=== PATIENT | female | born 1990 | race African-American/Black ===

== ENCOUNTER → 2016-08-09 | Outpatient (CLI) | payer OTHER ==
--- NOTE | 2016-08-09 20:46 | REP ---
Clinical: Anatomical evaluation. Comparison: None . Findings: Examination demonstrates a single live intrauterine in transverse (head to the maternal right side) presentation. motion is identified by technologist. Placenta is noted anteriorly and grade one without evidence for placenta previa or abruption. Amniotic fluid volume is normal. Cervix measures 5.4 cm in length and appears closed. No evidence for nuchal cord. Gestational age by LMP 20 weeks 0 days with LARY 12/27/2016 . Gestational age by current measurements 20 weeks 1 day with LARY 12/26/2016 . FHR equals 141 beats per minute. BPD 4.4 19 weeks 2 days HC 17.7 20 weeks 2 days AC 15.0 20 weeks 2 days FL 3.2 19 weeks 6 days HL 3.3 20 weeks 6 days HC/AC ratio 1.18 Estimated weight 331 grams ( 50th percentile). Anatomical assessment demonstrates normal structures including cranium, choroid plexus, cavum, cerebellum/posterior fossa, lungs, diaphragm, stomach, cord insertion/three-vessel cord, kidneys/bladder, spine, and extremities. Limited evaluation of the facial features and heart/ventricular outflow tracts. Impression: Live fetus in transverse lie with appropriate interval growth. Anatomical limitations noted above. Remainder of the anatomical assessment is complete and normal. Signed by Ady Street MD 08/09/2016 08:38 P
== END ==
LOC: M RAD 10:04
PROVIDERS: ATTEND Obstetrics & Gynecology
DX: Z34.82 Encounter for supervision of other normal pregnancy, second trimester (principal); Z3A.17 17 weeks gestation of pregnancy

== ENCOUNTER → 2016-08-17 | Outpatient (REF) | payer OTHER | LOC: M LAB REF 16:28 | PROVIDERS: ATTEND Advanced Practice Midwife | DX: Z34.02 Encounter for supervision of normal first pregnancy, second trimester (principal) ==

== ENCOUNTER → 2016-08-31 | Outpatient (CLI) | payer OTHER ==
--- NOTE | 2016-08-31 15:41 | REP ---
Obstetric sonography: History: Supervision of for anatomy. Comparison study is from August 09, 2016. Findings: Scanning demonstrates a viable single intrauterine gestation in a cephalic lie. motion is observed and heart rate is recorded at 150 beats per minute. An anterior placenta is seen grade 0 without evidence of previa or abruption. Amniotic fluid is subjectively normal. Closed cervical length is 4.2 cm, measured transabdominally. There is a complex right maternal ovarian cystic lesion with hypoechoic fluid measuring 7.6 x 4.7 x 6.5 cm. This is essentially unchanged. The outside salesman has the impression that there is an arrhythmia observed at real time examination of the heart. Ventricular cardiac outflow tract views are still less than optimally seen. A normal four-chamber heart view is seen. The following additional anatomic structures are identified and felt to be unremarkable on the fetus: cranium, choroid plexus, cavum, cerebellum posterior fossa, face and profile, lungs, diaphragm, left-sided stomach, abdominal wall cord insertion, three-vessel umbilical cord, kidneys and bladder, spine, upper and lower extremities. Biometry chart: BPD 5.6 cm = 23 weeks 1 day Head circumference 21.7 cm = 23 weeks 5 days Abdominal circumference 18.3 cm = 23 weeks 1 day Femur length 4.3 cm = 24 weeks 0 days Humeral length 3.8 cm = 23 weeks 3 days HC/AC ratio normal 1.19 cephalic index normal 0.70 estimated weight 604 grams, 1 pound 5 ounces, 58 percentile for 23 weeks 1 day. Impression: 1. Viable single intrauterine gestation at 23 weeks 4 days by today's composite sonographic criteria. Expected gestational age estimate based on prior sonography is 23 weeks 2 days. LARY by prior sonography December 26, 2016. 2. Question arrhythmia. Occasional premature cardiac contraction seen and documented on M-mode strip. Left and right ventricular cardiac outflow tract views still less than optimally seen. Consider consultation. 3. 7.6 cm hypoechoic cystic lesion in the maternal right ovary. Signed by Baljeet Gillette MD 09/01/2016 10:12 A
== END ==
LOC: M RAD 11:08
PROVIDERS: ATTEND Obstetrics & Gynecology
DX: Z34.02 Encounter for supervision of normal first pregnancy, second trimester (principal)

== ENCOUNTER → 2016-09-22 | Outpatient (CLI) | payer OTHER ==
--- NOTE | 2016-09-22 14:18 | REP ---
Clinical: Anatomical evaluation. Comparison: 08/31/2016 . Findings: Examination demonstrates a single live intrauterine in transverse presentation. motion is identified by technologist. Placenta is noted anteriorly and grade 0 without evidence for placenta previa or abruption. Complex right maternal ovarian cyst now measures 5.1 cm maximal diameter and decreased from 7.6 cm on prior examination. Amniotic fluid volume is normal. Cervix measures arrival 3.8 cm in length and appears closed. Nuchal cord cannot be excluded. Gestational age by LMP 26 weeks 2 days with LARY 12/27/2016 . Gestational age by current measurements 26 weeks 6 days with LARY 12/23/2016 . FHR equals 150 beats per minute. Estimated weight 963 grams ( 51st percentile). Anatomical assessment demonstrates normal structures including cranium, choroid plexus, cavum, cerebellum/posterior fossa, lungs, four-chamber heart/ventricular outflow tracts, diaphragm, stomach, three-vessel cord, kidneys/bladder, spine. Impression: 1. Single live intrauterine in transverse lie demonstrating appropriate interval growth. In conjunction with prior examination anatomical assessment is complete and normal. 2. Previously noted arrhythmia not documented on current exam. 3. Complex right maternal ovary cyst minimally decreased in size. Signed by Ady Street MD 09/22/2016 02:10 P
== END ==
LOC: M RAD 12:22
PROVIDERS: ATTEND Obstetrics & Gynecology
DX: Z36 Encounter for antenatal screening of mother (principal); Z3A.26 26 weeks gestation of pregnancy

== ENCOUNTER → 2016-09-29 | Outpatient (CLI) | payer OTHER ==
[2016-09-29 11:48] LABS: MEAN CORPUSCULAR HEMOGLOBIN 31.1 pg (27.0-33.0); MEAN CORPUSCULAR VOLUME 94.1 fl (80.0-96.0); RED CELL DISTRIBUTION WIDTH 12.7 % (11.5-14.5); WHITE BLOOD COUNT 11.9 K/mm3 (4.0-10.0)
== END ==
LOC: M LAB 10:20
PROVIDERS: ATTEND Obstetrics & Gynecology
DX: Z34.02 Encounter for supervision of normal first pregnancy, second trimester (principal)

== ENCOUNTER → 2016-11-23 | Outpatient (REF) | payer OTHER | LOC: M LAB REF 16:33 | PROVIDERS: ATTEND Advanced Practice Midwife | DX: Z34.03 Encounter for supervision of normal first pregnancy, third trimester (principal) ==

== ENCOUNTER → 2016-12-01 | Outpatient (CLI) | payer OTHER ==
[2016-12-01 16:17] LABS: ALT/SGPT 18 U/L (12-78); AST/SGOT 16 U/L (15-37); BILIRUBIN,TOTAL 0.2 MG/DL (0.2-1.0); CREATININE FOR GFR 0.59 MG/DL (0.55-1.02); GLOMERULAR FILTRATION RATE > 60.0 (>60); URIC ACID 5.4 MG/DL (2.6-6.0)
[2016-12-01 16:46] LABS: MEAN CORPUSCULAR HEMOGLOBIN 30.8 pg (27.0-33.0); MEAN CORPUSCULAR HGB CONC 32.7 g/dl (32.0-36.5); MEAN CORPUSCULAR VOLUME 94.2 fl (80.0-96.0); RED CELL DISTRIBUTION WIDTH 13.2 % (11.5-14.5); WHITE BLOOD COUNT 10.2 K/mm3 (4.0-10.0)
== END ==
LOC: M LAB 15:13
PROVIDERS: ATTEND Advanced Practice Midwife
DX: O10.013 Pre-existing essential hypertension complicating pregnancy, third trimester (principal); Z3A.00 Weeks of gestation of pregnancy not specified

== ENCOUNTER 2016-12-20 11:04 | Outpatient (CLI) | payer OTHER ==
[~2016-12-20] VITALS: Ht 162.6 cm; Wt 115.0 kg
[2016-12-20] MEDS ORDERED: ADVA230A INH (11:16)
[2016-12-20] MEDS ORDERED: LABE30TA PO (11:16)
[2016-12-20 11:23] VITALS: BP 136/75
[2016-12-20] MEDS ORDERED: LR 800 ML IV SCH (12:15)
[2016-12-20 12:26] LABS: MEAN CORPUSCULAR HEMOGLOBIN 30.6 pg (27.0-33.0); MEAN CORPUSCULAR HGB CONC 32.8 g/dl (32.0-36.5); MEAN CORPUSCULAR VOLUME 93.5 fl (80.0-96.0); RED CELL DISTRIBUTION WIDTH 13.5 % (11.5-14.5)
[2016-12-20] MEDS ORDERED: LR 1,000 ML IV SCH (13:00)
[2016-12-20 13:23] VITALS: BP 136/82
[2016-12-20 14:16] VITALS: BP 133/79
[2016-12-20 14:58] LABS: ALT/SGPT 19 U/L (12-78); AST/SGOT 14 U/L (15-37); BILIRUBIN,TOTAL 0.4 MG/DL (0.2-1.0); CREATININE FOR GFR 0.65 MG/DL (0.55-1.02); GLOMERULAR FILTRATION RATE > 60.0 (>60); URIC ACID 6.4 MG/DL (2.6-6.0)
[2016-12-21] MEDS ORDERED: ADACEL/BOOSTRIX VACCINE (DIPHTH/PERTUSS/ACELL/TETANUS)0.5ML SYR (90715) IM ONE (09:00)
== END 2016-12-20 14:54 ==
LOC: UNDOADMIN 11:04 → M LDO 11:04 → M LDI 11:04 → M LDO 14:54 → UNDODISIN 14:54 → EDSTATUS 12-21 08:41
PROVIDERS: ATTEND Obstetrics & Gynecology
DX: O14.93 Unspecified pre-eclampsia, third trimester (principal); Z3A.39 39 weeks gestation of pregnancy; Z91.013 Allergy to seafood

== ENCOUNTER 2017-01-01 11:25 | Inpatient (IN) | payer OTHER ==
[2017-01-01] VITALS (12 sets, daily range): BP systolic 108–146; BP diastolic 58–77
[~2017-01-01] VITALS: Ht 162.6 cm; Wt 120.0 kg
[~2017-01-01 11:25] MED LIST: ADVA230A INH; LABE30TA PO
[2017-01-01 12:41] LABS: MEAN CORPUSCULAR HEMOGLOBIN 31.2 pg (27.0-33.0); MEAN CORPUSCULAR HGB CONC 33.7 g/dl (32.0-36.5); MEAN CORPUSCULAR VOLUME 92.5 fl (80.0-96.0); RED CELL DISTRIBUTION WIDTH 14.1 % (11.5-14.5); WHITE BLOOD COUNT 9.3 K/mm3 (4.0-10.0)
[2017-01-01 13:02] LABS: ALT/SGPT 24 U/L (12-78); AST/SGOT 21 U/L (15-37); BILIRUBIN,TOTAL 0.3 MG/DL (0.2-1.0); CREATININE FOR GFR 0.55 MG/DL (0.55-1.02); GLOMERULAR FILTRATION RATE > 60.0 (>60); URIC ACID 6.5 MG/DL (2.6-6.0)
[2017-01-01] MEDS ORDERED: miSOPROStol 50 MCG 1/2 TAB (S0191) PO ONE (13:30)
[2017-01-01] MEDS ORDERED: LACTATED RINGER'S 1000 ML IV ONE (13:30)
--- NOTE | 2017-01-01 14:26 | HPEPDOC ---
Obstetrical History & Physical General Date of Admission January 01, 2017 at 11:25 History of Present Illness Patient is a 26-year-old female who is a at 40 weeks 5 days with an LARY of 12/27/2016 based off of her LMP and consistent with her first trimester ultrasound. She initiated care in her first trimester at [facility]. Her has been complicated by chronic hypertension which the patient has been taking 300 mg of labetalol twice a day. She presents to labor and delivery today for an induction of labor related to her chronic hypertension. Patient denies any signs or symptoms of preeclampsia. She reports active movement. Denies vaginal bleeding, contractions, or leaking of fluid. 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 Surgical History: Denies/None Family History Significant Family History: Hypertension, Other (depression) Social History Social history Patient is and is in the as an active duty soldier. Marital Status: Family situation: Spouse/partner home Psychosocial History: Depression * Smoker: non-smoker Alcohol: Denies Drugs: denies Abuse Violence Screening Have you been hit/kicked/slapp: No Have you been sexually assault: No Allergies Coded Allergies: Shellfish Allergy (Verified Allergy, Severe, ANAPHYLAXIS, 12/20/16) Medications Scheduled Labetalol HCl (Labetalol HCl) 300 Mg Tab, 150 MG PO BID Salmeterol/Fluticasone (Advair Hfa 230-21 Mcg/Act) 1 Aer Aer, 1 PUFF INH DAILY Physical Examination Physical Examination GENERAL: Alert and oriented times three. BREAST: . ABDOMEN: Gravid and non-tender to touch. FETUS: Is vertex (VTX) by sterile vaginal examination (SVE), fetus is vertex ( VTX) by Ricardo. HEART RATE: Regular rate and rhythm. LUNGS: Clear to auscultation (CTA). EXTREMITIES: No edema. No clonus. Vital Signs/I&O Vital Sign - Last 24 Hours 01/01/17 01/01/17 01/01/17 11:45 12:56 14:08 Temp 98.2 Pulse 96 85 97 Resp 18 18 18 B/P (MAP) 117/69 (85) 132/74 (93) 134/74 (94) Laboratory Data 24H LABS Laboratory Tests 2 01/01/17 11:35: Serology Scanned Report Hepatitis B Testing 01/01/17 12:36: CBC/BMP Laboratory Tests 01/01/17 12:36 Red Blood Count 3.43 L, Mean Corpuscular Volume 92.5, Mean Corpuscular Hemoglobin 31.2, Mean Corpuscular Hemoglobin Concent 33.7, Red Cell Distribution Width 14.1 Pertinent Laboratoy Data Blood Type: B+ RBC Antibody Screen: Negative HIV: Negative Hepatitis B: Negative Rapid Plasma Reagin: Nonreactive Rubella: Immune Chlamydia/Gonorrhea: Negative Group B Streptococcus: Negative Quad Screen Test: Declined Cystic Fibrosis: Unknown Anatomy Ultrasound Ultrasound Date: December 28, 2016 Placenta Location: Anterior Normal Anatomy: Yes Placenta Previa: No Estimated Weight (grams): 3665 Vaginal Examination Dilation: None Effacement: 40-50% Station: -3 Cervical Consistency: Soft Cervical Position: Posterior Presentation: Cephalic presentation Position: Vertex (occiput) Assessment Heart Rate (FHR): 140 Variability: Moderate Accelerations: Positive Decelerations: None Tocometer Contractions: Yes Frequency: greater than 15 min/apart Multi-drug resistant Organism: No history of MDRO Assessment/Plan Assessment IUP at 40 weeks 5 days gestation Chronic hypertension Category 1 heart rate tracing Plan Admit to labor and delivery. Saline lock and labs per protocol. Out of bed ad marcial. Regular diet. Patient consents to induction of labor after extensive education on risks/ benefits done with patient and . Consents have been signed and in [facility] chart. Cytotec ordered PO for every [address] Cali collaborated on plan for patient. Anticipate cervical ripening. Labor and Delivery Counseling Patient has met with counselor d/t desire to breast and pierced nipples. BOUBACAR VARGAS CNM January 01, 2017 12:57
[2017-01-01] MEDS: miSOPROStol 50 MCG 1/2 TAB (S0191) PO SCH ×2 (17:58→22:12)
[2017-01-01] MEDS ORDERED: LABETALOL 100 MG TAB PO SCH (21:00)
[2017-01-01] MEDS ORDERED: hydrOXYzine 50 MG TAB PO SCH (21:00)
--- NOTE | 2017-01-01 21:48 | IPNPDOC ---
Date Seen The patient was seen on 01/01/17 AT 2130. Progress Note SUBJECTIVE: Patient reports she is doing well. Only complaining of cramping. Denies any preeclamptic symptoms presently. OBJECTIVE PHYSICAL EXAMINATION: VITAL SIGNS: Please see below. RESPIRATORY: Rate regular. No use of accessory muscles. ABDOMINAL: Gravid. Palpates soft without tenderness. EXTREMITIES: Bilateral lower extremities with generalized edema. No pitting. ASSESSMENT: IUP @ 40 weeks 5 days, CHTN, not in active labor, Category I FHR tracing. PLAN: Continue with cytotec induction and VTE prophylaxis. Reviewed options with patient in regards to IOL. Reviewed that due to the very difficult vaginal exam elicited by the patient, this is the only cervical ripening drug that is available to her. Patient verbalized understanding. VS, I&O, 24H, Fishbone Vital Signs/I&O Vital Signs Date Time Temp Pulse Resp B/P (MAP) Pulse Ox O2 Delivery O2 Flow Rate FiO2 01/01/17 21:18 88 135/73 01/01/17 21:16 98.5 18 Laboratory Data 24H LABS Laboratory Tests 2 01/01/17 11:35: Serology Scanned Report Hepatitis B Testing 01/01/17 12:36: Glomerular Filtration Rate > 60.0, Creatinine 0.55, Aspartate Amino Transf (AST/ SGOT) 21, Alanine Aminotransferase (ALT/SGPT) 24, Lactate Dehydrogenase 180, Total Bilirubin 0.3, Uric Acid 6.5H, Syphilis Serology NONREACTIVE CBC/BMP Laboratory Tests 01/01/17 12:36 Red Blood Count 3.43 L, Mean Corpuscular Volume 92.5, Mean Corpuscular Hemoglobin 31.2, Mean Corpuscular Hemoglobin Concent 33.7, Red Cell Distribution Width 14.1, Aspartate Amino Transf (AST/SGOT) 21, Alanine Aminotransferase (ALT/SGPT) 24, Lactate Dehydrogenase 180, Total Bilirubin 0.3, Uric Acid 6.5 H BOUBACAR VARGAS CNM January 01, 2017 21:48
[2017-01-01] MEDS ORDERED: BUTORPHANOL 2 MG/ML INJ (J0595) IV ONE (23:00)
[2017-01-01] MEDS ORDERED: PROMETHAZINE INJ 25 MG/ML VIAL (J2550) IV ONE (23:00)
[2017-01-02] VITALS (56 sets, daily range): BP systolic 98–153; BP diastolic 56–97
[2017-01-02] MEDS ORDERED: FENTANYL 2MCG/ML ROPIVACAINE 0.2% IN 0.9% NACL 200ML IVBAG As Ordered ONE (02:01)
--- NOTE | 2017-01-02 02:17 | IPNPDOC ---
Date Seen The patient was seen on 01/02/17. Progress Note SUBJECTIVE: Patient desires an epidural for pain management. She has vomited. She received 100 mg of Vistaril at 2200 as she desired something to help her sleep. OBJECTIVE: FHR 145, moderate variability, 10x10 accelerations, no current decelerations. Category II tracing noted with minimal variability and late decelerations, which have resolved with intrauterine resuscitation. Contractions are every 1 to 4 minutes. DVT prophylaxis ordered?: Yes ASSESSMENT: IUP @ 40 weeks 6 days gestation, CHTN, Category II FHR tracing PLAN:Patient is due for a cytotec. Will not give at this time. Patient to receive epidural for pain management. Will continue to monitor. Consider Pitocin once epidural has been obtained and FHR is reactive. VS, I&O, 24H, Fishbone Vital Signs/I&O Vital Signs Date Time Temp Pulse Resp B/P (MAP) Pulse Ox O2 Delivery O2 Flow Rate FiO2 01/02/17 00:14 88 118/64 (82) 01/01/17 21:16 98.5 18 I&O- Last 24 Hours up to 6 AM 01/02/17 06:00 Intake Total 780 ml Output Total 850 ml Balance -70 ml Laboratory Data 24H LABS Laboratory Tests 2 01/01/17 11:35: Serology Scanned Report Hepatitis B Testing 01/01/17 12:36: Glomerular Filtration Rate > 60.0, Creatinine 0.55, Aspartate Amino Transf (AST/ SGOT) 21, Alanine Aminotransferase (ALT/SGPT) 24, Lactate Dehydrogenase 180, Total Bilirubin 0.3, Uric Acid 6.5H, Syphilis Serology NONREACTIVE CBC/BMP Laboratory Tests 01/01/17 12:36 Red Blood Count 3.43 L, Mean Corpuscular Volume 92.5, Mean Corpuscular Hemoglobin 31.2, Mean Corpuscular Hemoglobin Concent 33.7, Red Cell Distribution Width 14.1, Aspartate Amino Transf (AST/SGOT) 21, Alanine Aminotransferase (ALT/SGPT) 24, Lactate Dehydrogenase 180, Total Bilirubin 0.3, Uric Acid 6.5 H BOUBACAR VARGAS CNM January 02, 2017 02:17
[2017-01-02] MEDS ORDERED: NALOXONE INJ 0.4 MG/1 ML VIAL (J2310) IV PRN ×3 (02:18→09:35)
[2017-01-02] MEDS ORDERED: FENTANYL/ROPIVACAINE/NACL BAG 200 ML EPIDURAL SCH (02:18)
[2017-01-02] MEDS ORDERED: ePHEDrine SULFATE 25 MG/5 ML(5MG/ML) SYRINGE IV PRN (02:18)
[2017-01-02] MEDS ORDERED: EPIDURAL COMMENT XX SCH (02:18)
[2017-01-02] MEDS ORDERED: EPIDURAL/PCA KEYS XX PRN (02:18)
[2017-01-02] MEDS ORDERED: REFRIGERATOR IV KEYS XX PRN (02:18)
[2017-01-02] MEDS ORDERED: LACTATED RINGER'S 1000 ML IV PRN (02:18)
[2017-01-02] MEDS ORDERED: ONDANSETRON 4MG/2ML VIAL (J2405) IV PRN ×4 (02:18→10:45)
[2017-01-02] MEDS ORDERED: diphenhydrAMINE INJ 50MG/ML VIAL (J1200) IV PRN ×2 (02:18→10:45)
[2017-01-02] MEDS: LR 1,000 ML IV SCH ×2 (02:51→07:57)
[2017-01-02] MEDS ORDERED: OXYTOCIN DRIP 30 UNITS in APPROPRIATE DILUENT 1 EA IV SCH (03:00)
[2017-01-02] MEDS ORDERED: ceFAZolin 2 GM/D5W 50 ML IV BAG (J0690) As Ordered ONE (08:46)
[2017-01-02] MEDS ORDERED: BICITRA 30ML SOLN UDC As Ordered ONE (08:46)
[2017-01-02 08:49] LABS: MEAN CORPUSCULAR HEMOGLOBIN 30.6 pg (27.0-33.0); MEAN CORPUSCULAR HGB CONC 33.1 g/dl (32.0-36.5); MEAN CORPUSCULAR VOLUME 92.3 fl (80.0-96.0); WHITE BLOOD COUNT 11.2 K/mm3 (4.0-10.0)
[2017-01-02] MEDS: PRENATAL VITAMIN TAB PO SCH (09:00)
[2017-01-02] MEDS ORDERED: BICITRA 30ML SOLN UDC PO ONE (09:00)
[2017-01-02] MEDS: DOCUSATE SODIUM 100 MG CAP PO SCH ×2 (09:00→21:44)
[2017-01-02] MEDS ORDERED: LR 1,000 ML IV SCH ×2 (09:02→10:45)
[2017-01-02] MEDS ORDERED: LIDOCAINE 2% W/EPIN INJ 20ML **PRES FREE As Ordered ONE (09:07)
[2017-01-02] MEDS ORDERED: OXYTOCIN INJ 10 UNITS/ML VIAL (J2590) As Ordered ONE (09:08)
[2017-01-02] MEDS ORDERED: ONDANSETRON 4MG/2ML VIAL (J2405) As Ordered ONE (09:11)
[2017-01-02] MEDS ORDERED: KETOROLAC 60 MG/2 ML VIAL (J1885) As Ordered ONE (09:11)
[2017-01-02] MEDS ORDERED: MORPHINE PRES-FREE INJ 10 MG/10 ML VIAL (J2274) As Ordered ONE (09:12)
[2017-01-02 09:14] LABS: ALT/SGPT 19 U/L (12-78); AST/SGOT 17 U/L (15-37); BILIRUBIN,TOTAL 0.5 MG/DL (0.2-1.0); CREATININE FOR GFR 0.59 MG/DL (0.55-1.02); GLOMERULAR FILTRATION RATE > 60.0 (>60); URIC ACID 7.1 MG/DL (2.6-6.0)
[2017-01-02] MEDS ORDERED: NORCO, ANEXSIA 5/325MG TABLET (HYDROcodone/ACETAMINOPHEN) PO PRN (09:15)
[2017-01-02] MEDS ORDERED: MOM 30ML SUSPENSION UDC PO PRN (09:15)
[2017-01-02] MEDS ORDERED: MEASLES,MUMPS,RUBELLA VACCINE INJ (MMR-II) (90707) SC SCH (09:15)
[2017-01-02] MEDS ORDERED: RHOGAM 300 MCG (1500 IU) INJ (J2790) IM SCH (09:15)
[2017-01-02] MEDS ORDERED: METHYLERGONOVINE MALEATE 0.2 MG TAB PO PRN (09:15)
[2017-01-02] MEDS ORDERED: METOCLOPRAMIDE INJ 10MG/2ML VIAL (J2765) IV PRN ×2 (09:35→10:45)
[2017-01-02] MEDS ORDERED: NALBUPHINE HCL 10 MG/ML AMP (J2300) IV PRN ×2 (09:35→10:45)
[2017-01-02 09:47] LABS: CORD GAS PCO2 V 38.3 mmHg; CORD GAS PH V 7.356 UNITS; CORD GAS PO2 V 23.2 mmHg; CORD GAS TCO2 V 22.1 MEQ/L
[2017-01-02 09:50] LABS: CORD GAS ABE A -4.5; CORD GAS HCO3 A 23.1 MEQ/L; CORD GAS O2 SAT A < 15.0 %; CORD GAS PH A 7.266 UNITS; CORD GAS PO2 A 10.1 mmHg; CORD GAS TCO2 A 24.7 MEQ/L
[2017-01-02] MEDS ORDERED: AZITHROMYCIN INJ 500 MG, VIAL MATE ADAPTER 1 EACH in D5W 250 ML IV ONE (10:00)
--- NOTE | 2017-01-02 10:44 | RO ---
DATE OF PROCEDURE: 01/02/2017 Joan is a 26-year-old female, a 1, para 0 who was admitted at 40-6/7 weeks gestation for induction. She underwent Cytotec induction followed by artificial rupture of membrane with thick meconium. She also had a nonreassuring heart rate tracing and an arrest of dilatation at approximately 2 cm. After extensive counseling, the decision was made to proceed with a primary section. She refused to continue with the induction process. PREOPERATIVE DIAGNOSES 1. Intrauterine at 40-6/7 weeks. 2. Nonreassuring heart rate tracing. 3. Meconium-stained fluid. 4. Remote from delivery. 5. Chronic hypertension. 6. Refusing to continue with induction process. POSTOPERATIVE DIAGNOSES: 1. Intrauterine at 40-6/7 weeks. 2. Nonreassuring heart rate tracing. 3. Meconium-stained fluid. 4. Remote from delivery. 5. Chronic hypertension. 6. Refusing to continue with induction process. 7. Cord around the left arm. SURGEON: Dr. Cali POWDER MILL OPERATOR: PROCEDURE: Primary low transverse section via Pfannenstiel incision. ANESTHESIA: Epidural. COMPLICATIONS: None. ESTIMATED BLOOD LOSS: 550 mL. FINDINGS: Live male infant in occiput transverse position. scores 2 and 9. weight 8 pounds. Normal-appearing placenta with meconium staining. PROCEDURE: After obtaining informed consent, the patient was taken to the operating room where epidural anesthetic was found to be adequate. She was then draped and prepped usual sterile fashion in the supine position. At this point, a Pfannenstiel incision was made with the first knife. This was carried down to the fascia. Fascia was incised in midline fashion and carried through laterally. Superior aspect of the fascia were grasped with two Demetris clamps, tented off, and dissected off the rectus muscles sharply. The inferior aspect was dissected off in a similar fashion. Rectus muscles in midline fashion. Perineum identified. Peritoneal cavity entered bluntly. Superior and inferior dissection of peritoneum was then done with good visualization of the bladder. At this point, a Mobius skin retractor was placed. A low-transverse uterine incision was made. Infant was delivered in atraumatic fashion. Nose and mouth bulb suctioned. Cord doubly clamped and cut. The was handed over to the waiting warmer. Cord blood and cord gas was sent. Placenta removed manually. Uterus cleared of all clot and debris. Uterine incision was then repaired in two separate layers of #0 Vicryl sutures. Pelvis copiously irrigated with normal saline and suctioned out. Attention turned to the peritoneum, which was closed in a running fashion using #2-0 Vicryl. Fascia closed in two separate segment of #0 Vicryl sutures. All superficial bleeders were coagulated, and the skin was reapproximated in subcuticular fashion using #3-0 Vicryl and a Erwin. Steri-Strips placed. The patient tolerated procedure well. She was then transferred to recovery room in stable condition.
[2017-01-02] MEDS ORDERED: MEPERIDINE INJ 25 MG/ML VIAL (J2175) IV PRN (10:45)
[2017-01-02] MEDS ORDERED: fentaNYL 100 MCG/2 ML INJECTION (J3010) IV PRN (10:45)
[2017-01-02] MEDS ORDERED: PERCOCET 5MG/325MG TAB PO PRN (10:45)
[2017-01-02] MEDS ORDERED: HYDROmorphone HCL 1 MG/ML SYRINGE (J1170) IV PRN (10:45)
[2017-01-02] MEDS: LABETALOL 200 MG TAB PO SCH (21:45)
[2017-01-03 01:39] VITALS: BP 126/62
[2017-01-03 05:31] VITALS: BP 135/75
[2017-01-03] MEDS: NORCO, ANEXSIA 5/325MG TABLET (HYDROcodone/ACETAMINOPHEN) PO PRN ×3 (06:35→21:25)
[2017-01-03 06:49] LABS: MEAN CORPUSCULAR HEMOGLOBIN 30.7 pg (27.0-33.0); MEAN CORPUSCULAR HGB CONC 33.1 g/dl (32.0-36.5); MEAN CORPUSCULAR VOLUME 92.9 fl (80.0-96.0); WHITE BLOOD COUNT 15.6 K/mm3 (4.0-10.0)
[2017-01-03] MEDS: PRENATAL VITAMIN TAB PO SCH ×2 (09:00→09:01)
[2017-01-03] MEDS: DOCUSATE SODIUM 100 MG CAP PO SCH ×2 (09:01→21:21)
[2017-01-03] MEDS: LABETALOL 200 MG TAB PO SCH ×2 (09:02→21:22)
[2017-01-03 10:00] VITALS: BP 138/77
[2017-01-03] MEDS: IBUPROFEN 800 MG TAB PO SCH ×2 (13:07→21:24)
[2017-01-03 14:00] VITALS: BP 134/72
[2017-01-03 18:00] VITALS: BP 134/69
[2017-01-03 21:54] VITALS: BP 115/64
[2017-01-04] MEDS: NORCO, ANEXSIA 5/325MG TABLET (HYDROcodone/ACETAMINOPHEN) PO PRN (05:00)
[2017-01-04 05:50] VITALS: BP 124/66
[2017-01-04] MEDS: IBUPROFEN 800 MG TAB PO SCH (07:20)
[2017-01-04] MEDS ORDERED: PERC5TAB6 PO (08:11)
[2017-01-04] MEDS: DOCUSATE SODIUM 100 MG CAP PO SCH (08:41)
[2017-01-04] MEDS: PRENATAL VITAMIN TAB PO SCH (08:42)
[2017-01-04 08:44] VITALS: BP 124/76
[2017-01-04] MEDS: LABETALOL 200 MG TAB PO SCH (08:44)
--- NOTE | 2017-01-04 08:52 | DSES ---
DATE OF ADMISSION: 01/01/2017 DATE OF DISCHARGE: FINAL DIAGNOSES: Term at 40 weeks with a failed induction, nonreassuring heart rate tracing, remote from delivery, chronic hypertension on labetalol. PROCEDURE DONE DURING THIS ADMISSION: Primary low transverse section. CONDITION UPON DISCHARGE: Stable. Discharge hemoglobin and hematocrit 8.4/26. MEDICATIONS SENT HOME WITH: - Percocet one tablet every 6 hours as needed for pain DISCHARGE INSTRUCTIONS: Given. She is to followup in the office in approximately 2 weeks for an incision check. BRIEF HISTORY: Joan is a 26-year-old female, 1, para 0, was admitted at 40 weeks' gestation for an induction with chronic hypertension. She underwent Cytotec followed by artificial rupture of membranes and Pitocin, progressed to 4 cm dilated, with nonreassuring heart rate tracing. At this point, a decision was made to proceed with a primary section. She underwent the above-noted procedure. Was then transferred to maternity for postoperative care. Postoperatively, she did well, remained afebrile throughout her hospital stay. Her blood pressures were under control with 200 mg of labetalol twice daily. On postoperative day #2, she was then discharged home in stable condition to followup in the office in approximately 2 weeks for an incision check.
[2017-01-04] MEDS ORDERED: IBUP-1114 PO (09:28)
[2017-01-04] MEDS ORDERED: NORCOTAB PO (09:28)
== END 2017-01-04 12:25 | disposition home or self-care (01) | DRG 766 ==
LOC: M LDI 11:25 → M OBS 01-02 11:40
PROVIDERS: ADMIT Advanced Practice Midwife; ATTEND Advanced Practice Midwife
PROC: 3E0DXGC Introduction of Other Therapeutic Substance into Mouth and Pharynx, External Approach (ICD-10-PCS; 2017-01-01)
PROC: 10D00Z1 Extraction of Products of Conception, Low, Open Approach (ICD-10-PCS; principal; 2017-01-02)
PROC: 10907ZC Drainage of Amniotic Fluid, Therapeutic from Products of Conception, Via Natural or Artificial Opening (ICD-10-PCS; 2017-01-02)
DX: O10.02 Pre-existing essential hypertension complicating childbirth (principal); O48.0 Post-term pregnancy; Z37.0 Single live birth; Z3A.40 40 weeks gestation of pregnancy; Z82.49 Family history of ischemic heart disease and other diseases of the circulatory system; Z81.8 Family history of other mental and behavioral disorders; J45.909 Unspecified asthma, uncomplicated; Z79.899 Other long term (current) drug therapy; Z91.013 Allergy to seafood; O77.0 Labor and delivery complicated by meconium in amniotic fluid; O76 Abnormality in fetal heart rate and rhythm complicating labor and delivery; O62.0 Primary inadequate contractions; O69.82X0 Labor and delivery complicated by other cord entanglement, without compression, not applicable or unspecified; O99.52 Diseases of the respiratory system complicating childbirth

== ENCOUNTER → 2018-05-09 | Outpatient (REF) | payer OTHER | LOC: M SFHCLERA 11:12 | DX: E66.01 Morbid (severe) obesity due to excess calories (principal) ==

== ENCOUNTER → 2018-05-10 | Outpatient (REF) | payer OTHER ==
[2018-05-10 17:09] LABS: ALBUMIN 3.9 GM/DL (3.2-5.2); ALBUMIN/GLOBULIN RATIO 0.98 (1.00-1.93); ALKALINE PHOSPHATASE 67 U/L (45-117); ALT/SGPT 26 U/L (12-78); ANION GAP 7 MEQ/L (8-16); AST/SGOT 14 U/L (7-37); BILIRUBIN,TOTAL 0.5 MG/DL (0.2-1.0); BLOOD UREA NITROGEN 12 MG/DL (7-18); CALCIUM LEVEL 9.2 MG/DL (8.5-10.1); CARBON DIOXIDE LEVEL 28 MEQ/L (21-32); CHLORIDE LEVEL 104 MEQ/L (98-107); CHOLESTEROL LEVEL 198 MG/DL (<200); CHOLESTEROL RISK RATIO 3.142 (<5); CREATININE FOR GFR 0.75 MG/DL (0.55-1.30); FREE T4 0.87 NG/DL (0.76-1.46); GLOMERULAR FILTRATION RATE > 60.0 (>60); GLUCOSE, FASTING 87 MG/DL (70-100); HDL CHOLESTEROL 63 MG/DL (>40); LDL CHOLESTEROL 117 MG/DL (<100); NON-HDL-C 135 MG/DL; POTASSIUM SERUM 4.3 MEQ/L (3.5-5.1); SODIUM LEVEL 139 MEQ/L (136-145); TOTAL PROTEIN 7.9 GM/DL (6.4-8.2); TRIGLYCERIDES LEVEL 88 MG/DL (<150)
== END ==
LOC: M SFHCLERA 10:55
DX: E66.01 Morbid (severe) obesity due to excess calories (principal)

== ENCOUNTER → 2018-06-11 | Outpatient (REF) | payer OTHER ==
[2018-06-11 13:30] LABS: HEMATOCRIT 35.7 % (36.0-47.0); HEMOGLOBIN 11.6 g/dl (12.0-15.5); MEAN CORPUSCULAR HEMOGLOBIN 30.1 pg (27.0-33.0); MEAN CORPUSCULAR HGB CONC 32.5 g/dl (32.0-36.5); MEAN CORPUSCULAR VOLUME 92.7 fl (80.0-96.0); PLATELET COUNT, AUTOMATED 349 10^3/uL (150-450); RED BLOOD COUNT 3.85 10^6/uL (4.00-5.40); RED CELL DISTRIBUTION WIDTH 13.1 % (11.5-14.5)
[2018-06-11 15:35] LABS: HCG, SERUM QUANTITATIVE 2439 MIU/ML
[2018-06-12 10:26] LABS: RUBELLA IgG QUALITATIVE IMMUNE (IMMUNE)
[2018-06-12 10:27] LABS: HBsAg Prenatal NEGATIVE (NEGATIVE)
[2018-06-12 10:54] LABS: HEPATITIS C VIRUS ABY INDEX 0.1 INDEX (<0.8)
[2018-06-12 10:55] LABS: HIV 1&2 SCREEN CENTAUR NEGATIVE (NEGATIVE)
== END ==
LOC: M LAB REF 12:23
DX: O36.80X0 Pregnancy with inconclusive fetal viability, not applicable or unspecified (principal); Z32.01 Encounter for pregnancy test, result positive
CPT/HCPCS: 86762

== ENCOUNTER → 2018-07-11 | Outpatient (REF) | payer OTHER ==
[2018-07-11 18:43] LABS: ALBUMIN 3.5 GM/DL (3.2-5.2); ALBUMIN/GLOBULIN RATIO 0.88 (1.00-1.93); ALKALINE PHOSPHATASE 65 U/L (45-117); ALT/SGPT 23 U/L (12-78); ANION GAP 6 MEQ/L (8-16); AST/SGOT 10 U/L (7-37); BILIRUBIN,TOTAL 0.2 MG/DL (0.2-1.0); BLOOD UREA NITROGEN 11 MG/DL (7-18); CALCIUM LEVEL 9.4 MG/DL (8.5-10.1); CARBON DIOXIDE LEVEL 27 MEQ/L (21-32); CHLORIDE LEVEL 103 MEQ/L (98-107); CREATININE FOR GFR 0.62 MG/DL (0.55-1.30); GLOMERULAR FILTRATION RATE > 60.0 (>60); GLUCOSE, FASTING 89 MG/DL (70-100); POTASSIUM SERUM 4.4 MEQ/L (3.5-5.1); SODIUM LEVEL 136 MEQ/L (136-145); TOTAL PROTEIN 7.5 GM/DL (6.4-8.2)
[2018-07-11 18:52] LABS: APPEARANCE, URINE HAZY (CLEAR); BACTERIA, URINE AUTO 2+ (NEGATIVE); BILIRUBIN, URINE AUTO NEGATIVE (NEGATIVE); BLOOD, URINE BLOOD NEGATIVE (NEGATIVE); COLOR, URINE YELLOW (YELLOW); GLUCOSE, URINE (UA) AUTO NEGATIVE (NEGATIVE); KETONE, URINE AUTO NEGATIVE (NEGATIVE); LEUKOCYTE ESTERASE, URINE AUTO 3+ (NEGATIVE); MUCUS, URINE SMALL (NEGATIVE); NITRITE, URINE AUTO NEGATIVE (NEGATIVE); PROTEIN, URINE AUTO NEGATIVE (NEGATIVE); RBC, URINE AUTO 3 /HPF (0-3); SPECIFIC GRAVITY URINE AUTO 1.024 (1.002-1.035); SQUAMOUS EPITHELIAL CELL UR AU 7 /HPF (0-6); UROBILINOGEN, URINE AUTO 0.2 mg/dL (0.0-2.0); WBC, URINE AUTO 3 /HPF (0-3)
== END ==
LOC: M SFHCLERA 11:54
DX: R10.13 Epigastric pain (principal)

== ENCOUNTER → 2018-07-12 | Outpatient (REF) | payer OTHER ==
[2018-07-12 15:30] LABS: CHLAMYDIA DNA AMPLIFICATION NEGATIVE (NEGATIVE); GC DNA AMPLIFICATION NEGATIVE (NEGATIVE)
== END ==
LOC: M LAB REF 13:20
DX: Z34.81 Encounter for supervision of other normal pregnancy, first trimester (principal)

== ENCOUNTER → 2018-07-18 | Outpatient (REF) | payer OTHER ==
[2018-07-20 00:07] LABS: H PYLORI STOOL ANTIGEN Negative (Negative)
== END ==
LOC: M SFHCLERA 09:52
DX: R10.13 Epigastric pain (principal)
CPT/HCPCS: 87338

== ENCOUNTER → 2018-07-19 | Outpatient (CLI) | payer OTHER ==
[2018-07-19 13:18] LABS: ALBUMIN 3.3 GM/DL (3.2-5.2); ALBUMIN/GLOBULIN RATIO 0.79 (1.00-1.93); ALKALINE PHOSPHATASE 61 U/L (45-117); ALT/SGPT 16 U/L (12-78); ANION GAP 9 MEQ/L (8-16); AST/SGOT 13 U/L (7-37); BILIRUBIN,TOTAL 0.3 MG/DL (0.2-1.0); BLOOD UREA NITROGEN 7 MG/DL (7-18); CALCIUM LEVEL 9.5 MG/DL (8.5-10.1); CARBON DIOXIDE LEVEL 25 MEQ/L (21-32); CHLORIDE LEVEL 101 MEQ/L (98-107); GLOMERULAR FILTRATION RATE > 60.0 (>60); GLUCOSE, FASTING 109 MG/DL (70-100); POTASSIUM SERUM 3.8 MEQ/L (3.5-5.1); SODIUM LEVEL 135 MEQ/L (136-145); TOTAL PROTEIN 7.5 GM/DL (6.4-8.2)
[2018-07-19 14:49] LABS: ESTIMATED AVERAGE GLUCOSE 126 MG/DL (60-110)
== END ==
LOC: M LAB 09:43
DX: Z36.89 Encounter for other specified antenatal screening (principal)
CPT/HCPCS: 80053

== ENCOUNTER → 2018-08-15 | Outpatient (REF) | payer OTHER ==
[~2018-08-15] MED LIST changes: +IBUP-1114 PO; +LABE300T2 PO; -LABE30TA PO; +NORCOTAB PO; +PERC5TAB12 PO
== END ==
LOC: M LAB REF 13:06
PROVIDERS: ATTEND Obstetrics & Gynecology
DX: Z34.81 Encounter for supervision of other normal pregnancy, first trimester (principal)

== ENCOUNTER → 2018-09-10 | Outpatient (REF) | payer OTHER | LOC: M LAB REF 13:30 | PROVIDERS: ATTEND Obstetrics & Gynecology | DX: Z34.82 Encounter for supervision of other normal pregnancy, second trimester (principal); Z3A.18 18 weeks gestation of pregnancy ==

== ENCOUNTER → 2018-09-18 | Outpatient (CLI) | payer OTHER ==
--- NOTE | 2018-09-18 13:07 | REP ---
Obstetric ultrasound for anatomy: There is a single intrauterine gestation in a vertex presentation. There is movement and cardiac activity. The heart rate is 160 beats per minute. The placenta is posterior without previa or abruptio. The placenta is grade zero maturity. Subjectively the amniotic fluid volume is normal. The cervix measures 4.6 cm length. Gestational age by the ultrasound today is 19 weeks 5 days/LARY 02/07/2019. Gestational age by LMP is 19 weeks 4 days/LARY 02/08/2019. weight is 307 grams (0 pounds, 10 ounces). This is the 50th percentile for 19 weeks 4 days. The following anatomic structures are identified and are unremarkable: Intracranial lateral ventricles, choroid plexus, cerebellum, cisterna magna, lungs, stomach, cord insertion, three-vessel cord, kidneys, bladder, spine and upper lower extremities. Suboptimally demonstrated because of position are the facial features, four-chamber view of the heart, cardiac right and left ventricular outflow tracts and diaphragm. A followup study dedicated to these structures might be considered. Electronically Signed by Thom Velásquez MD 09/18/2018 12:59 P
== END ==
LOC: M RAD 11:16
PROVIDERS: ATTEND Obstetrics & Gynecology
DX: Z34.82 Encounter for supervision of other normal pregnancy, second trimester (principal); Z36.89 Encounter for other specified antenatal screening; Z3A.19 19 weeks gestation of pregnancy

== ENCOUNTER → 2018-11-07 | Outpatient (CLI) | payer OTHER ==
[~2018-11-07] MED LIST changes: +HYDR-3715 PO; -NORCOTAB PO
--- NOTE | 2018-11-07 16:46 | REP ---
Clinical: Anatomical evaluation. Comparison: 09/18/2018 . Findings: Examination demonstrates a single live intrauterine in cephalic presentation. motion is identified by technologist. Placenta is noted posterior and grade grade zero without evidence for placenta previa or abruption. Amniotic fluid volume is normal. Cervix measures 4.8 cm in length and appears closed. No evidence for nuchal cord. Gestational age by LMP 26 weeks 5 days with LARY 02/08/2019 . Gestational age by current measurements 26 weeks 6 days with LARY 02/07/2019 . FHR equals 150 beats per minute. Estimated weight 1042 grams ( 56th percentile). Anatomical assessment demonstrates normal structures including cranium, cavum, cerebellum/posterior fossa, facial features, lungs, four-chamber heart/ventricular outflow tracts, diaphragm, stomach, cord insertion/three-vessel cord, kidneys/bladder, and extremities. Impression: Single live intrauterine in cephalic presentation demonstrating appropriate interval growth. In conjunction with prior examination anatomical assessment is complete and normal. No gross abnormalities are identified. Electronically Signed by Ady Street MD 11/07/2018 04:38 P
== END ==
LOC: M RAD 15:29
PROVIDERS: ATTEND Obstetrics & Gynecology
DX: O34.211 Maternal care for low transverse scar from previous cesarean delivery (principal); O99.212 Obesity complicating pregnancy, second trimester; E66.9 Obesity, unspecified; Z3A.26 26 weeks gestation of pregnancy

== ENCOUNTER → 2018-11-22 | Outpatient (CLI) | payer OTHER ==
[2018-11-22 11:52] LABS: HEMATOCRIT 33.3 % (36.0-47.0); MEAN CORPUSCULAR HEMOGLOBIN 30.8 pg (27.0-33.0); MEAN CORPUSCULAR VOLUME 93.3 fl (80.0-96.0); PLATELET COUNT, AUTOMATED 286 10^3/uL (150-450); RED BLOOD COUNT 3.57 10^6/uL (4.00-5.40); WHITE BLOOD COUNT 10.7 10^3/uL (4.0-10.0)
== END ==
LOC: M LAB 10:21
PROVIDERS: ATTEND Obstetrics & Gynecology
DX: Z34.82 Encounter for supervision of other normal pregnancy, second trimester (principal)

== ENCOUNTER → 2019-01-09 | Outpatient (REF) | payer OTHER | LOC: M LAB REF 12:32 | PROVIDERS: ATTEND Obstetrics & Gynecology | DX: Z34.83 Encounter for supervision of other normal pregnancy, third trimester (principal); Z36.85 Encounter for antenatal screening for Streptococcus B ==

== ENCOUNTER 2019-01-30 05:30 | Inpatient (IN) | payer OTHER ==
[~2019-01-30] VITALS: Ht 162.6 cm; Wt 139.5 kg
[2019-01-30] VITALS (23 sets, daily range): BP systolic 111–140; BP diastolic 54–80
[~2019-01-30 05:30] MED LIST changes: +PRENTAB55 PO; +PROAAER10 INH
[2019-01-30] MEDS ORDERED: LR 1,000 ML IV SCH (05:49)
[2019-01-30] MEDS ORDERED: LACTATED RINGER'S 1000 ML IV STA (05:49)
[2019-01-30] MEDS ORDERED: BICITRA 30ML SOLN UDC PO ONE (06:00)
[2019-01-30 06:43] LABS: HEMATOCRIT 32.5 % (36.0-47.0); HEMOGLOBIN 10.7 g/dl (12.0-15.5); MEAN CORPUSCULAR HEMOGLOBIN 30.1 pg (27.0-33.0); MEAN CORPUSCULAR HGB CONC 32.9 g/dl (32.0-36.5); MEAN CORPUSCULAR VOLUME 91.3 fl (80.0-96.0); PLATELET COUNT, AUTOMATED 270 10^3/uL (150-450); RED BLOOD COUNT 3.56 10^6/uL (4.00-5.40)
[2019-01-30] MEDS ORDERED: OXYTOCIN INJ 10 UNITS/ML VIAL (J2590) As Ordered ONE (07:16)
[2019-01-30] MEDS ORDERED: MORPHINE PRES-FREE INJ 10 MG/10 ML VIAL (J2274) As Ordered ONE (07:18)
[2019-01-30] MEDS ORDERED: BUPIVACAINE/DEXTROSE 0.75% 2 ML AMP As Ordered ONE (07:19)
[2019-01-30] MEDS ORDERED: dexameTHASONE 4 MG/ML 1ML VIAL (J1100) As Ordered ONE (07:27)
[2019-01-30] MEDS ORDERED: OXYTOCIN DRIP 30 UNITS in APPROPRIATE DILUENT 1 EA IV SCH (07:39)
[2019-01-30] MEDS ORDERED: METOCLOPRAMIDE INJ 10MG/2ML VIAL (J2765) IV PRN (07:42)
[2019-01-30] MEDS ORDERED: ONDANSETRON 4MG/2ML VIAL (J2405) IV PRN (07:42)
[2019-01-30] MEDS ORDERED: diphenhydrAMINE INJ 50MG/ML VIAL (J1200) IV PRN (07:42)
[2019-01-30] MEDS ORDERED: NALBUPHINE HCL 10 MG/ML AMP (J2300) IV PRN ×2 (07:42→09:15)
[2019-01-30] MEDS ORDERED: NALOXONE INJ 0.4 MG/1 ML VIAL (J2310) IV PRN ×2 (07:42)
[2019-01-30] MEDS ORDERED: RHOGAM 300 MCG (1500 IU) INJ (J2790) IM SCH (07:45)
[2019-01-30] MEDS ORDERED: MOM 30ML SUSPENSION UDC PO PRN (07:45)
[2019-01-30] MEDS ORDERED: PERCOCET 5MG/325MG TAB PO PRN ×2 (07:45)
[2019-01-30] MEDS ORDERED: MEASLES,MUMPS,RUBELLA VACCINE INJ (MMR-II) (90707) SC SCH (07:45)
[2019-01-30] MEDS ORDERED: PERCOCET PO (07:46)
[2019-01-30] MEDS ORDERED: fentaNYL 100 MCG/2 ML INJECTION (J3010) As Ordered ONE ×2 (08:08→09:30)
[2019-01-30] MEDS ORDERED: PHENYLephrine HCL 500 MCG/5 ML (100MCG/ML) SYRINGE (J2370) As Ordered ONE (08:09)
[2019-01-30] MEDS ORDERED: ONDANSETRON 4MG/2ML VIAL (J2405) As Ordered ONE (08:10)
[2019-01-30 08:18] LABS: CORD GAS ABE V -3.1; CORD GAS HCO3 V 24.2 MEQ/L; CORD GAS O2 SAT V 50.3 %; CORD GAS PCO2 V 52.1 mmHg; CORD GAS PH V 7.285 UNITS; CORD GAS PO2 V 25.3 mmHg; CORD GAS SBC V 20.8 MEQ/L; CORD GAS TCO2 V 25.8 MEQ/L
[2019-01-30 08:20] LABS: CORD GAS ABE A -3.7; CORD GAS HCO3 A 25.2 MEQ/L; CORD GAS O2 SAT A 34.4 %; CORD GAS PCO2 A 62.5 mmHg; CORD GAS PH A 7.223 UNITS; CORD GAS PO2 A 20.9 mmHg; CORD GAS TCO2 A 27.1 MEQ/L
[2019-01-30] MEDS ORDERED: MIDAZOLAM INJ 2 MG/2 ML VIAL (J2250) As Ordered ONE (08:24)
[2019-01-30] MEDS ORDERED: KETOROLAC 60 MG/2 ML VIAL (J1885) As Ordered ONE (08:36)
[2019-01-30] MEDS: DOCUSATE SODIUM 100 MG CAP PO SCH ×2 (09:00→21:33)
[2019-01-30] MEDS: PRENATAL VITAMINS CHEWABLE TABLET PO SCH (09:00)
[2019-01-30] MEDS ORDERED: fentaNYL 100 MCG/2 ML INJECTION (J3010) IV PRN (09:15)
[2019-01-30] MEDS ORDERED: KETOROLAC 30 MG/ML VIAL (J1885) IV PRN (09:15)
[2019-01-30] MEDS: LR 1,000 ML IV SCH ×2 (09:56→17:45)
--- NOTE | 2019-01-30 10:44 | RO ---
DATE OF PROCEDURE: 01/30/2019 Joan is a 28-year-old female who is 2, para 1 with a prior history of prior section who is being admitted at term for elective repeat section. PREOPERATIVE DIAGNOSIS: Term for elective repeat section. POSTOPERATIVE DIAGNOSIS: Term for elective repeat section. PROCEDURE: 1. Repeat section. 2. Revision of old scar. SURGEON: Dr. Kendall Cali. BOLT HEADER: Julissa Negrete PGY3 ANESTHESIA: Spinal. FINDINGS: Live female infant in occiput transverse position. Apgars 9 and 9, birthweight 8 pounds 3 ounces. Normal-appearing placenta, tubes and ovaries. DESCRIPTION OF PROCEDURE: After obtaining informed consent, patient was taken to the operating room where spinal anesthetic was found to be adequate. She was then draped and prepped usual sterile fashion in the supine position. At this point, an elliptical incision was made over the skin. The scar tissue was removed as well as the keloid skin. The incision was then carried down to the fascia. Fascia was incised in midline fashion and carried through laterally. The superior aspect of the fascia was then grasped with two Demetris clamps, tented off and dissected off the rectus muscles sharply. The inferior aspect was dissected off in a similar fashion. Rectus muscles in midline fashion. Perineum identified. Peritoneal cavity entered bluntly. Superior and inferior dissection of the peritoneum was then done with good visualization of the bladder. At this point a Mobius skin retractor was placed. A low-transverse uterine incision was made. was delivered in atraumatic fashion. Nose and mouth bulb suctioned. Cord doubly clamped and cut and was handed over to the waiting warmer. Cord blood and cord gas were sent. Placenta removed manually. Uterus cleared of all clot and debris and the uterine incision was then repaired in two separate layers of 0 Vicryl sutures. All superficial bleeders were coagulated and the skin was re-approximated in subcuticular fashion using #3-0 Vicryl on a Erwin. Steri-Strips placed. The patient tolerated procedure well. She was then transferred to recovery room in stable condition.
[2019-01-30] MEDS: IBUPROFEN 800 MG TAB PO SCH (17:58)
[2019-01-31] MEDS: IBUPROFEN 800 MG TAB PO SCH ×3 (01:12→18:29)
[2019-01-31 02:11] VITALS: BP 133/62
[2019-01-31 06:09] VITALS: BP 122/58
[2019-01-31 07:05] LABS: HEMATOCRIT 29.1 % (36.0-47.0); HEMOGLOBIN 9.7 g/dl (12.0-15.5); MEAN CORPUSCULAR HEMOGLOBIN 31.2 pg (27.0-33.0); MEAN CORPUSCULAR HGB CONC 33.3 g/dl (32.0-36.5); MEAN CORPUSCULAR VOLUME 93.6 fl (80.0-96.0); PLATELET COUNT, AUTOMATED 248 10^3/uL (150-450); RED BLOOD COUNT 3.11 10^6/uL (4.00-5.40); WHITE BLOOD COUNT 13.9 10^3/uL (4.0-10.0)
[2019-01-31] MEDS ORDERED: KETOROLAC 60 MG/2 ML VIAL (J1885) As Ordered ONE (07:06)
--- NOTE | 2019-01-31 07:08 | IPNPDOC ---
Progress Note Date of Service: Jan 31, 2019 Progress Note SUBJECT: 28 yo G2 now P2002 POD#1 s/p rLTCS. She has been ambulating, voiding spontaneously without issue and tolerating regular diet. Pain has been well controlled. Denies CP, SOB, dizziness, n/v OBJECTIVE: Vital Signs Label Value Date Time Patient Temperature 97.3 degrees F 01/31/19 0609 Temperature Source Temporal 01/31/19 0609 Pulse 93 01/31/19 0609 Respiratory Rate 18 bpm 01/31/19 0609 Blood Pressure Assessment 122/58 (79) 01/31/19 0609 Source Automatic Cuff (NIBP) Bedside Pulse Oximetry 98 % 01/31/19 0609 Alert and oriented times three. Breath sounds clear to auscultation. Heart rate: Regular rate and rhythm, no murmurs, rubs or gallops. Abdomen: Fundus firm at U-2. Soft, NTTP. Dressing c/d/i ASSESSMENT: 28 yo G2 now P2002 POD#1 s/p rLTCS, doing well PLAN: -Continue routine PP care. - Encourage ambulation. -anticipate discharge tomorrow Inge Trammell, PGY3 VS, I&O, 24H, [place] Vital Signs/I&O Vital Signs Date Time Temp Pulse Resp B/P (MAP) Pulse Ox O2 Delivery O2 Flow Rate FiO2 01/31/19 06:09 97.3 93 18 122/58 (79) 98 I&O- Last 24 Hours up to 6 AM 01/31/19 06:00 Intake Total 1326 ml Output Total 2075 ml Balance -749 ml Laboratory Data 24H LABS Laboratory Tests 2 01/30/19 08:07: Cord Arterial Blood pH 7.223, Cord Arterial Blood PCO2 62.5, Cord Arterial Blood PO2 20.9, Cord Arterial Blood HCO3 25.2, Cord Arterial Blood Total CO2 27.1, Cord Arterial Blood Base Excess -3.7, Cord Arterial Base Excess (Standard 20.0, Cord Arterial Bld Oxygen Saturation 34.4, Cord Venous Blood pH 7.285, Cord Venous Blood PCO2 52.1, Cord Venous Blood PO2 25.3, Cord Venous Blood HCO3 24.2, Cord Venous Blood Total CO2 25.8, Cord Venous Base Excess (Actual) -3.1, Cord Venous Base Excess (Standard) 20.8, Cord Venous Blood Oxygen Saturation 50.3 CBC/BMP INGE TRAMMELL PGY-3 Jan 31, 2019 07:08
[2019-01-31] MEDS: PRENATAL VITAMINS CHEWABLE TABLET PO SCH (08:54)
[2019-01-31] MEDS: DOCUSATE SODIUM 100 MG CAP PO SCH ×2 (08:55→21:15)
[2019-01-31 10:43] VITALS: BP 111/54
[2019-01-31 18:08] VITALS: BP 130/68
[2019-01-31 22:00] VITALS: BP 133/65
[2019-02-01] MEDS: IBUPROFEN 800 MG TAB PO SCH ×2 (01:57→08:24)
[2019-02-01 02:00] VITALS: BP 119/63
[2019-02-01 06:00] VITALS: BP 141/84
--- NOTE | 2019-02-01 07:22 | IPNPDOC ---
Text Note Date of Service The patient was seen on 02/01/19. NOTE PO #2 Feels well. OOB independently. Voiding. on demand VSS. Fundus firm Wound well approximated, steri strips intact Lochia rubra light wihtout odor PO #2 CPS is pending. Routine care till decided. VS,Fishbone, I+O VS, Fishbone, I+O Vital Signs Date Time Temp Pulse Resp B/P (MAP) Pulse Ox O2 Delivery O2 Flow Rate FiO2 02/01/19 06:00 97.9 90 18 141/84 (103) 01/31/19 18:08 98 Kary Rodgers CNM Feb 01, 2019 07:22
[2019-02-01] MEDS: PRENATAL VITAMINS CHEWABLE TABLET PO SCH (08:24)
[2019-02-01] MEDS: DOCUSATE SODIUM 100 MG CAP PO SCH (08:24)
== END 2019-02-01 12:15 | disposition home or self-care (01) | DRG 773 ==
LOC: M LDI 05:30 → M OBS 10:53
PROVIDERS: ADMIT Obstetrics & Gynecology; ATTEND Obstetrics & Gynecology
PROC: 10D00Z1 Extraction of Products of Conception, Low, Open Approach (ICD-10-PCS; principal; 2019-01-30 07:30)
DX: O34.211 Maternal care for low transverse scar from previous cesarean delivery (principal); Z37.0 Single live birth; Z3A.39 39 weeks gestation of pregnancy